=== PATIENT | male | born 1975 | race Caucasian/White ===

== ENCOUNTER 2016-09-27 12:54 | Emergency (ER) | payer MEDICAID ==
[2016-09-27 13:02] VITALS: RESP 16; TEMP 97.5
[2016-09-27] MEDS ORDERED: CYCLOBENZAPRINE 10 MG TAB PO ONE (13:28)
--- NOTE | 2016-09-27 13:28 | EDPHY ---
H & P Stated Complaint: r lower back pain for a week, non traumatic, hx sciatica HPI/ROS: CHIEF COMPLAINT: Low back pain HISTORY OF PRESENT ILLNESS: Patient complains of 1 week history of low back pain. This is lumbar region. Somewhat midline but primarily to the right of midline. It is a moderate to severe pain. At times it is so severe he cannot sleep. It does not radiate at this point, but he does have a history of right- sided radiculopathy. No saddle anesthesia. No incontinence of urine or feces. No retention of urine or feces. No lower extremity weakness, paresthesia, anesthesia or pain. No direct trauma or injury. He has not been evaluated for this in over 3 years. No other associated complaints or modifying factors. REVIEW OF SYSTEMS: Ten systems reviewed and are negative unless otherwise noted in the HPI EXAMINATION General Appearance: Alert, no distress Cardiovascular: Pulses normal throughout. Symmetric DP and PT pulses 2+. Brisk cap refill Back: Tenderness to palpation in the right paravertebral tissue in the lumbar region. There is no midline tenderness at the lumbar, thoracic or cervical region. No crepitus, step-off or deformity. Range of motion is intact but painful. Neurological: GCS 15. A&O, sensory symmetric, strength symmetric. Patellar reflexes symmetric. Normal proprioception of the great toe. Skin: Warm and dry, no rash. No petechiae, purpura or ecchymosis Extremities: Nontender, no pedal edema Psychiatric: Mood and affect normal DIFFERENTIAL DIAGNOSES: Including but not limited to acute low back pain, lumbosacral strain, myofascial strain, lumbar radiculopathy, spondylolisthesis, fracture, muscle spasm MDM: 1:30 p.m. Right lower back pain without radiculopathy at this time. He does have a history of radiculopathy in the past. No direct trauma or injury. He has not had this evaluated in nearly 3 years. No evidence of acute cord compression or cauda equina. X-ray is pending. Flexeril and Lon[place] have been ordered. 2:20 p.m. X-ray reveals chronic changes. No acute findings. I have informed the patient of this. There is no evidence of acute cord compression or cauda equina. He is ambulating without assistance. Will provide symptomatic medications on a short-term basis. They are to follow up with primary care physician and back specialist. I recommend back exercises and physical therapy. He is to return to ER for worsening symptoms that would suggest cauda equina or acute cord compression as discussed. He verbalizes understanding of this. And is discharged home stable condition. Patient also mentions that he occasionally has some testicular discomfort in the past. He does not want a workup for this at this time. His spouse says this happens occasionally but he does not want to be evaluated for it at this time. I will provide outpatient follow-up with them and instructions to return here should they change their mind and want formal workup including ultrasound, which I do recommend. ED Precautions: Worsening pain. Erythema, edema, cyanosis, pallor, paresthesia or anesthesia. SUPERVISION: Source: Patient Exam Limitations: No limitations - Personal History Current Tetanus/Diphtheria Vaccine: Unsure Current Tetanus Diphtheria and Acellular Pertussis (TDAP): Unsure - Medical/Surgical History Hx Asthma: No Hx Chronic Respiratory Disease: No Hx Diabetes: No Hx Cardiac Disease: No Hx Renal Disease: No Hx Cirrhosis: No Hx Alcoholism: No Hx HIV/AIDS: No Hx Splenectomy or Spleen Trauma: No Other PMH: denies. sciatica - Social History Smoking Status: Current every day smoker Constitutional: Initial Vital Signs Temperature (C) 97.5 F 09/27/16 13:00 Heart Rate 78 09/27/16 13:00 Respiratory Rate 16 09/27/16 13:00 Blood Pressure 100/60 09/27/16 13:00 O2 Sat (%) 98 09/27/16 13:00 O2 Delivery Mode Room Air Allergies/Adverse Reactions: No Known Allergies Allergy (Unverified 03/05/16 07:02) Home Medications: Medication Instructions Recorded Acetaminophen/Codeine 300/30Mg 1 each PO Q6 PRN #15 tab 09/27/16 [Tylenol #3 (*)] Cyclobenzaprine [Flexeril 10 MG 10 mg PO TID PRN #15 tab 09/27/16 (*)] Departure - Departure Disposition: Home, Routine, Self-Care Clinical Impression: Degenerative disc disease, lumbar Acute low back pain Qualifiers: Back pain laterality: right Sciatica presence: without sciatica Qualified Code( s): M54.5 - Low back pain Condition: Good Instructions: Low Back Strain (ED), Acute Low Back Pain (ED), Degenerative Disc Disease (ED) Additional Instructions: Medications as discussed including prescriptions p.r.n.. Ibuprofen 600-800 mg every 8 hours as needed. Referrals: NONE *PRIMARY CARE P,. [Primary Care Provider] - As per Instructions Rolando Allen MD [[facility] [place] Primary Care Provider] - As per Instructions Sonu Palomino MD [Medical Doctor] - As per Instructions Prescriptions: Acetaminophen/Codeine 300/30Mg [Tylenol #3 (*)] 1 each PO Q6 PRN #15 tab PRN Reason: Pain, Mild Cyclobenzaprine [Flexeril 10 MG (*)] 10 mg PO TID PRN #15 tab PRN Reason: Spasms
[2016-09-27] MEDS ORDERED: HYDROCODONE/APAP 5/325 TAB PO ONE (13:29)
[2016-09-27] MEDS ORDERED: HYDROCODONE/APAP 5/325 TAB ONE (13:33)
[2016-09-27 14:40] VITALS: BP 130/81; PULSE 81; O2SAT 96
== END 2016-09-27 14:41 | disposition home or self-care (01) ==
DX: M51.36 Other intervertebral disc degeneration, lumbar region (principal); F17.200 Nicotine dependence, unspecified, uncomplicated

== ENCOUNTER 2018-07-02 21:28 | Emergency (ER) | payer SELFPAY ==
--- NOTE | 2018-07-02 21:39 | EDPHY ---
H & P Stated Complaint: mid Abd pain, lower back pain, testicule pain - Personal History Current Tetanus Diphtheria and Acellular Pertussis (TDAP): No - Medical/Surgical History Hx Asthma: No Hx Chronic Respiratory Disease: No Hx Diabetes: No Hx Cardiac Disease: No Hx Renal Disease: No Hx Cirrhosis: No Hx Alcoholism: No Hx HIV/AIDS: No Hx Splenectomy or Spleen Trauma: No Other PMH: denies. sciatica - Social History Smoking Status: Current every day smoker Time Seen by Provider: 07/02/18 21:38 Constitutional: Initial Vital Signs Temperature (C) 36.8 C 07/02/18 21:32 Heart Rate 89 07/02/18 21:32 Respiratory Rate 18 07/02/18 21:32 Blood Pressure 129/85 H 07/02/18 21:32 O2 Sat (%) 97 07/02/18 21:32 O2 Delivery Mode Room Air Allergies/Adverse Reactions: No Known Allergies Allergy (Unverified 07/02/18 21:36) Home Medications: Medication Instructions Recorded Acetaminophen/Codeine 300/30Mg 1 each PO Q6 PRN #15 tab 09/27/16 [Tylenol #3 (*)] Cyclobenzaprine [Flexeril 10 MG 10 mg PO TID PRN #15 tab 09/27/16 (*)] Cephalexin [Keflex] 500 mg PO Q6H #28 cap 07/03/18 Ibuprofen [Motrin (*)] 800 mg PO Q6-8PRN #14 tab 07/03/18 Medical Decision Making - Diagnostics Imaging: Discussed imaging studies w/ civil engineer helper Radiologist - Diagnostics Imaging Results: Imaging Impressions Testicular Ultrasound 07/02/18 21:43 Impression: Essentially normal testicular ultrasound. There is no evidence for mass or testicular torsion. Results called and discussed with Dr. Craig on 07/02/2018 at 22:37. ED Course/Re-evaluation: CHIEF COMPLAINT: Testicle pain HISTORY OF PRESENT ILLNESS: The patient is a homeless 43 y/o male with a history of sciatica who complains of progressively worsening testicle pain this afternoon. For the last year he's has intermittent low back pain and groin pain that usually resolves after a few minutes. Symptoms today are much more severe and constant. Pain is aggravated by palpation of his testicles. He describes associated pain radiating through to his lower back. Symptoms feel similar to a prior kidney infection, but more severe. He denies urinary symptoms, fever, vomiting, abdominal pain, diarrhea. REVIEW OF SYSTEMS: A comprehensive 10 system review of systems is otherwise negative aside from elements mentioned in the history of present illness and medical decision making. PHYSICAL EXAM: HR, BP, O2 Sat, RR. Temp noted General Appearance: Alert, well hydrated, appropriate, and non-toxic appearing. Disheveled, malodorous. Head: Atraumatic without scalp tenderness or obvious injury Eyes: Pupils equal, round, reactive to light and accommodation, EOMI, no trauma , no injection. Nose: Atraumatic, no rhinorrhea, clear. Throat: Mucus membranes moist. Neck: Supple, nontender, no lymphadenopathy. Respiratory: No retractions, no distress, no wheezes, and no accessory muscle use. Lungs are clear to auscultation bilaterally. Cardiovascular: Regular rate and rhythm, no murmurs, rubs, or gallops. Good capillary refill all extremities. Gastrointestinal: Abdomen is soft, nontender, non-distended, no masses, no rebound, no guarding, no peritoneal signs. : Left lateral testicular tenderness. No erythema, swelling. No inguinal hernias. Musculoskeletal: Normal active ROM of all extremities, atraumatic. Neurological: Alert, appropriate, and interactive. Nonfocal. Skin: No rashes, good turgor, no nodules on palpation. Past medical history: Sciatica Past surgical history: Denies Family history: Noncontributory Social history: Homeless. DIAGNOSTICS/PROCEDURES/CRITICAL CARE TIME: Testicular US: pending DIFFERENTIAL DIAGNOSIS: The differential diagnosis for the patient's testicular pain included but was not limited to epididymitis, orchitis, referred pain from kidney stone, inguinal hernia, and torsion of the testicle. MEDICAL DECISION MAKING: This is a 43 y/o male who presents with a several hour history of left testicle pain radiating through to his lower back. He has left testicular tenderness on exam without erythema, swelling, or inguinal hernias. He has a soft benign abdomen. Suspect epididymitis. Plan for testicular US and UA. Patient care signed out to Dr. Craig at shift change pending UA and US results. (Jose Kennedy) 2229: I DID GO AND SEE AND EVALUATE THE PATIENT HE WAS SIGNED OVER TO ME AT 10: 00 P.M. SHIFT CHANGE. 43-YEAR-OLD MALE WHO IS HOMELESS, PRESENTS EMERGENCY ROOM WITH TESTICULAR PAIN REPORTS TO ME HE HAS HAD THIS FOR YEAR BUT IT HAS PROGRESSIVELY GOTTEN WORSE. DENIES ANY DYSURIA. DENIES TRAUMA. DOES HAVE A HISTORY OF SCIATICA. 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 NO HERNIA ON EXAM. NO EVIDENCE OF TORSION ON EXAM. NO LESIONS. ABDOMEN IS SOFT. PLAN FOR UA AND ULTRASOUND. I HAVE ORDERED THE PATIENT TYLENOL MOTRIN FOR PAIN CONTROL. Urinalysis resulted shows leukocyte Estrace. Will send for urine culture will start on Keflex. Ultrasound is still pending. Patient's ultrasound called to me by Dr. Cleveland is unremarkable for any acute pathology. No evidence of torsion. No evidence of orchitis or epididymitis. Essentially unremarkable testicular ultrasound. Given the patient's ongoing lower abdominal pain back pain and testicular pain will proceed with CT scan abdomen pelvis with IV contrast. Rule out internal hernia or kidney stones or some lower abdominal pelvic infection. CT scan abdomen pelvis with IV contrast obtained reason for CT scan lower abdominal pain. CT scan faxed to me by direct Radiology at 11:59 p.m.. This shows inflammatory stranding about the spermatic cord bilaterally left greater than right this appearance could be seen with the setting of epididymitis in the appropriate setting. Otherwise no acute inflammatory process seen in the abdomen. There is some ground-glass nodular in lung bases incompletely evaluated on the CT scan abdomen pelvis with IV contrast. The patient did have an ultrasound earlier this evening that did not show any evidence of orchitis or epididymitis or testicular torsion. However the CT scan does show inflammation on spermatic cords bilaterally concerning for epididymitis. I will treat for epididymitis with antibiotics. Anti- inflammatory pain medicine referred to Urology. I have discussed this with the patient at length. He is comfortable this plan. 0146: Patient re-evaluated this time resting comfortably. In fact he was sleeping. His pain is well controlled. States he feels much better. Received 1 g Rocephin here in the emergency room. Keflex for home. Recommend following up with Urology. Additionally return precautions discussed with the patient understands and is comfortable this plan. (Kirill Craig) - Data Points Laboratory Results: Laboratory Results 07/02/18 22:48 07/02/18 22:48 07/02/18 07/02/18 07/02/18 22:59 22:48 22:48 WBC 12.19 10^3/uL H 10^3/uL (3.80-9.50) RBC 4.58 10^6/uL 10^6/uL (4.40-6.38) Hgb 13.6 g/dL L g/dL (13.7-17.5) POC Hgb 13.9 gm/dL gm/dL (13.7-17.5) Hct 39.9 % L % (40.0-51.0) POC Hct 41 % % (40-51) MCV 87.1 fL fL (81.5-99.8) MCH 29.7 pg pg (27.9-34.1) MCHC 34.1 g/dL g/dL (32.4-36.7) RDW 13.9 % % (11.5-15.2) Plt Count 343 10^3/uL 10^3/uL (150-400) MPV 8.7 fL fL (8.7-11.7) Neut % (Auto) 60.6 % % (39.3-74.2) Lymph % (Auto) 29.9 % % (15.0-45.0) Ross % (Auto) 7.9 % % (4.5-13.0) Eos % (Auto) 0.6 % % (0.6-7.6) Baso % (Auto) 0.6 % % (0.3-1.7) Nucleat RBC Rel Count 0.0 % % (0.0-0.2) Absolute Neuts (auto) 7.39 10^3/uL H 10^3/uL (1.70-6.50) Absolute Lymphs (auto) 3.65 10^3/uL H 10^3/uL (1.00-3.00) Absolute Monos (auto) 0.96 10^3/uL H 10^3/uL (0.30-0.80) Absolute Eos (auto) 0.07 10^3/uL 10^3/uL (0.03-0.40) Absolute Basos (auto) 0.07 10^3/uL 10^3/uL (0.02-0.10) Absolute Nucleated RBC 0.00 10^3/uL 10^3/uL (0-0.01) Immature Gran % 0.4 % % (0.0-1.1) Immature Gran # 0.05 10^3/uL 10^3/uL (0.00-0.10) POC Sodium 142 mEq/L mEq/L (135-145) Sodium 134 mEq/L L mEq/L (135-145) POC Potassium 3.7 mEq/L mEq/L (3.3-5.0) Potassium 4.0 mEq/L mEq/L (3.5-5.2) POC Chloride 105 mEq/L mEq/L (97-110) Chloride 104 mEq/L mEq/L (97-110) Carbon Dioxide 25 mEq/l mEq/l (22-31) POC Total CO2 25 mEq/L mEq/L (22-31) Anion Gap 5 mEq/L L mEq/L (6-14) POC BUN 11 mg/dL mg/dL (7-23) BUN 13 mg/dL mg/dL (7-23) Creatinine 0.7 mg/dL mg/dL (0.7-1.3) POC Creatinine 0.7 mg/dL mg/dL (0.7-1.3) Estimated GFR > 60 Glucose 99 mg/dL mg/dL (70-100) POC Glucose 101 mg/dL H mg/dL (70-100) Calcium 9.1 mg/dL mg/dL (8.5-10.4) Total Bilirubin 0.3 mg/dL mg/dL (0.1-1.4) Conjugated Bilirubin 0.2 mg/dL mg/dL (0.0-0.5) Unconjugated Bilirubin 0.1 mg/dL mg/dL (0.0-1.1) AST 18 IU/L IU/L (17-59) ALT 32 IU/L IU/L (21-72) Alkaline Phosphatase 87 IU/L IU/L (38-126) Total Protein 6.7 g/dL g/dL (6.3-8.2) Albumin 3.5 g/dL g/dL (3.5-5.0) Lipase 85 IU/L IU/L (23-300) Urine Color Urine Appearance Urine pH Ur Specific Kennard Urine Protein Urine Ketones Urine Blood Urine Nitrate Urine Bilirubin Urine Urobilinogen Ur Leukocyte Esterase Urine RBC Urine WBC Ur Epithelial Cells Amorphous Sediment Urine Mucus Urine Sperm Urine Glucose 07/02/18 21:50 WBC RBC Hgb POC Hgb Hct POC Hct MCV MCH MCHC RDW Plt Count MPV Neut % (Auto) Lymph % (Auto) Ross % (Auto) Eos % (Auto) Baso % (Auto) Nucleat RBC Rel Count Absolute Neuts (auto) Absolute Lymphs (auto) Absolute Monos (auto) Absolute Eos (auto) Absolute Basos (auto) Absolute Nucleated RBC Immature Gran % Immature Gran # POC Sodium Sodium POC Potassium Potassium POC Chloride Chloride Carbon Dioxide POC Total CO2 Anion Gap POC BUN BUN Creatinine POC Creatinine Estimated GFR Glucose POC Glucose Calcium Total Bilirubin Conjugated Bilirubin Unconjugated Bilirubin AST ALT Alkaline Phosphatase Total Protein Albumin Lipase Urine Color YELLOW Urine Appearance MODERATELY TURBID Urine pH 8.0 H (5.0-7.5) Ur Specific Kennard 1.016 (1.002-1.030) Urine Protein NEGATIVE (NEGATIVE) Urine Ketones NEGATIVE (NEGATIVE) Urine Blood NEGATIVE (NEGATIVE) Urine Nitrate NEGATIVE (NEGATIVE) Urine Bilirubin NEGATIVE (NEGATIVE) Urine Urobilinogen 2.0 EU H EU (0.2-1.0) Ur Leukocyte Esterase TRACE H (NEGATIVE) Urine RBC 1-3 /hpf /hpf (0-3) Urine WBC 5-10 /hpf H /hpf (0-3) Ur Epithelial Cells TRACE /lpf /lpf (NONE-1+) Amorphous Sediment PRESENT /hpf /hpf (NONE-1+) Urine Mucus TRACE /lpf /lpf (NONE-1+) Urine Sperm PRESENT /hpf /hpf (NONE SEEN) Urine Glucose NEGATIVE (NEGATIVE) Medications Given: Discontinued Medications Acetaminophen (Tylenol) 1,000 mg PO EDNOW ONE Stop: 07/02/18 21:59 Last Admin: 07/02/18 22:00 Dose: 1,000 mg Cephalexin (Keflex 500 Mg Prepack#4) 1 btl TAKEHOME EDNOW ONE PRN Reason: Protocol Stop: 07/02/18 22:33 Last Admin: 07/02/18 22:37 Dose: 1 btl Cephalexin HCl (Keflex) 500 mg PO EDNOW ONE PRN Reason: Protocol Stop: 07/02/18 22:33 Last Admin: 07/02/18 22:36 Dose: 500 mg Sodium Chloride (Ns) 1,000 mls @ 0 mls/hr IV EDNOW ONE; Wide Open PRN Reason: Protocol Stop: 07/02/18 22:40 Last Admin: 07/02/18 22:46 Dose: 1,000 mls Ceftriaxone Sodium/Dextrose (Rocephin 1 Gm (Premix)) 50 mls @ 100 mls/hr IV EDNOW ONE PRN Reason: Protocol Stop: 07/03/18 00:31 Last Admin: 07/03/18 00:09 Dose: 50 mls Ibuprofen (Motrin) 800 mg PO EDNOW ONE Stop: 07/02/18 21:59 Last Admin: 07/02/18 22:00 Dose: 800 mg Point of Care Test Results: Chemistry 07/02/18 22:59 POC Sodium 142 mEq/L mEq/L (135-145) POC Potassium 3.7 mEq/L mEq/L (3.3-5.0) POC Chloride 105 mEq/L mEq/L (97-110) POC Total CO2 25 mEq/L mEq/L (22-31) POC BUN 11 mg/dL mg/dL (7-23) POC Creatinine 0.7 mg/dL mg/dL (0.7-1.3) POC Glucose 101 mg/dL H mg/dL (70-100) ISTAT H&H 07/02/18 22:59 POC Hgb 13.9 gm/dL gm/dL (13.7-17.5) POC Hct 41 % % (40-51) Departure - Departure Disposition: Home, Routine, Self-Care Clinical Impression: Abdominal pain, Epididymitis Condition: Good Instructions: Epididymitis (ED), Acute Abdominal Pain (ED) Additional Instructions: 1. Recommend anti-inflammatory pain medicine 2. Antibiotic as prescribed. 3. Follow up with Urology 4. Return emergency room if there is worsening symptoms includes worsening abdominal pain, testicular pain, fever, not doing well. Referrals: NONE *PRIMARY CARE P,. [Primary Care Provider] - As per Instructions Michele Del Real MD [Medical Doctor] - As per Instructions Prescriptions: Cephalexin [Keflex] 500 mg PO Q6H #28 cap Ibuprofen [Motrin (*)] 800 mg PO Q6-8PRN #14 tab Report Scribed for: Jose Kennedy Report Scribed by: Jennie Valles Date of Report: 07/02/18 Time of Report: 21:49
[2018-07-02] MEDS ORDERED: IBUPROFEN 800 MG TAB PO ONE (21:58)
[2018-07-02] MEDS ORDERED: ACETAMINOPHEN 500 MG TAB PO ONE (21:58)
[2018-07-02] MEDS ORDERED: CEPHALEXIN 500MG PREPACK#4 BTL TAKEHOME ONE (22:32)
[2018-07-02] MEDS ORDERED: CEPHALEXIN 500 MG CAP PO ONE (22:32)
[2018-07-02] MEDS ORDERED: NS 1,000 ML IV ONE (22:39)
[2018-07-02] MEDS ORDERED: IOHEXOL 300 mgI/ML (OMNIPAQUE) 150 ML BTL IV ONE (23:01)
[2018-07-02 23:03] LABS: PLATELET COUNT 343 10^3/uL (150-400)
[2018-07-03 01:46] VITALS: BP 122/78
== END 2018-07-03 02:08 | disposition home or self-care (01) ==
DX: R10.9 Unspecified abdominal pain (principal); N45.1 Epididymitis
CPT/HCPCS: 82435-PO; 82565-PO; 82947-PO; 84132-PO; 84295-PO; 84520-PO; 85014-ER; 96365; J0696; Q9967